=== PATIENT | female | born 1950 | race Caucasian/White ===

== ENCOUNTER → 2016-08-13 | Outpatient (CLI) | payer BC ==
[~2016-08-13] MED LIST: HYDR25TA4 PO; METO50TA16 PO; SIMV20TA2 PO
--- NOTE | 2016-08-13 12:39 | MAMMOGRAPHY REPORT ---
BILATERAL DIGITAL SCREENING MAMMOGRAM WITH CAD: 08/13/2016 CLINICAL HISTORY: Routine screening. Patient has no complaints. TECHNIQUE: Bilateral CC and MLO views were obtained. Current study was also evaluated with a Comput er Aided Detection (CAD) system. COMPARISON: Comparison is made to exams dated: 08/10/2015 mammogram, 08/05/2014 mammogram, 08/03/2013 m ammogram, 07/30/2012 mammogram, 07/26/2011 mammogram, and 07/25/2010 mammogram - [facility] [address] BREAST COMPOSITION: There are scattered areas of fibroglandular density in both breasts. FINDINGS: Asymmetry in the upper outer Quadrant of the left breast appears similar on all available prior mammograms dating back to at least 2007, therefore likely benign. No new suspicious mass, arc hitectural distortion or cluster of microcalcifications is seen. IMPRESSION: ACR BI-RADS CATEGORY 1: NEGATIVE There is no mammographic evidence of malignancy. A 1 year screening mammogram is recommended. The p atient will receive written notification of the results. Approximately 10% of breast cancers are not detected with mammography. A negative mammographic repor t should not delay biopsy if a clinically suggestive mass is present. Sarah Franks M.D. ay/:08/13/2016 08:19:34 [place] Worker: Armida Astudillo, [facility] letter sent: Normal 1/2 BI-RADS Code: ACR BI-RADS Category 1: Negative
== END | disposition home or self-care (01) ==
LOC: C.MAMM 07:28
PROVIDERS: ATTEND Obstetrics & Gynecology
DX: Z12.31 Encounter for screening mammogram for malignant neoplasm of breast (principal)

== ENCOUNTER → 2016-11-13 | Outpatient (CLI) | payer BC ==
[2016-11-13 11:36] LABS: ALT/SGPT 32 U/L (12-78); AST/SGOT 27 U/L (15-37); BLOOD UREA NITROGEN 11 mg/dl (7-18); BUN/CREATININE RATIO 13.3 (10-20); CALCIUM 9.5 mg/dl (8.5-10.1); CARBON DIOXIDE 33 mmol/L (21-32); CHLORIDE 99 mmol/L (98-107); CHOLESTEROL 135 mg/dl (0-200); CREATININE 0.85 mg/dl (0.60-1.20); GLUCOSE 102 mg/dl (70-99); SODIUM 136 mmol/L (136-145)
[2016-11-13 11:38] LABS: CHOLESTEROL/HDL RATIO 2.2; HDL CHOLESTEROL 61 mg/dl; LDL CHOLESTEROL CALCULATED 58 mg/dl; TRIGLYCERIDES 81 mg/dl (0-150); VERY LOW DENSITY LIPOPROT CALC 16 mg/dl
== END | disposition home or self-care (01) ==
LOC: C.LABBC 07:48
DX: I10 Essential (primary) hypertension (principal); E78.5 Hyperlipidemia, unspecified

== ENCOUNTER → 2017-05-13 | Outpatient (CLI) | payer BC ==
[2017-05-13 11:21] LABS: ALT/SGPT 30 U/L (12-78); BLOOD UREA NITROGEN 15 mg/dl (7-18); BUN/CREATININE RATIO 17.7 (10-20); CALCIUM 9.1 mg/dl (8.5-10.1); CARBON DIOXIDE 29 mmol/L (21-32); CHLORIDE 102 mmol/L (98-107); CREATININE 0.83 mg/dl (0.60-1.20); GLUCOSE 95 mg/dl (70-99); SODIUM 136 mmol/L (136-145)
[2017-05-13 11:24] LABS: AST/SGOT 23 U/L (15-37)
== END | disposition home or self-care (01) ==
LOC: C.LABBC 07:37
DX: I10 Essential (primary) hypertension (principal); E78.5 Hyperlipidemia, unspecified

== ENCOUNTER → 2017-05-20 | Outpatient (CLI) | payer BC ==
--- NOTE | 2017-05-20 11:32 | DIAGNOSTIC IMAGING REPORT ---
L FOOT MIN 3 VIEWS ROUTINE CLINICAL HISTORY: Left foot pain COMPARISON: None. DISCUSSION: There are osteoarthritic changes with a hallux valgus deformity and first metatarsal head bunion. There are no acute fractures or dislocations. There is an os navicularis. IMPRESSION: No acute fractures. Moderate degenerative changes at the level of the first metatarsal phalangeal joint. Electronically signed by: Reilly Sandoval M.D. 05/20/2017 11:31 AM Dictated Date/Time: 05/20/2017 11:30 AM
--- NOTE | 2017-05-20 11:36 | DIAGNOSTIC IMAGING REPORT ---
LEFT HAND 3 VIEWS CLINICAL HISTORY: Left hand pain. FINDINGS: 3 views of left hand are obtained. No prior studies are available for comparison at the time of dictation. The skeletal structures appear osteopenic. No fracture is seen. Mild to moderate osteoarthritic change is present at the first carpometacarpal joint. Mild arthritic changes also seen at the first metacarpophalangeal joint. There is arthritic change involving the interphalangeal joints, distal greater than proximal. 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 Soft tissue edema is present in these fingers. IMPRESSION: 1. There is no radiographic evidence of left hand fracture. 2. Osteopenia and arthritic change as above. 3. 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 Soft tissue swelling is noted in these fingers. Electronically signed by: Quentin Galindo M.D. 05/20/2017 11:34 AM Dictated Date/Time: 05/20/2017 11:32 AM
--- NOTE | 2017-05-20 11:37 | DIAGNOSTIC IMAGING REPORT ---
L ANKLE MIN 3 VIEWS ROUTINE CLINICAL HISTORY: Unremarkable left ankle trauma. Arthritis. COMPARISON: None FINDINGS: Alignment of the left ankle is anatomic. There is no acute fracture. Talar dome is intact. There is mild osteophytosis of the tibiotalar articulation. [place]ss[place] along the proximal clavicular better depicted on the left foot radiographs. IMPRESSION: 1. No acute fracture or dislocation of the left ankle. 2. Mild tibiotalar joint osteoarthritis. Electronically signed by: Lukas Echevarria M.D. 05/20/2017 11:36 AM Dictated Date/Time: 05/20/2017 11:32 AM
[2017-05-20 14:09] LABS: LYME DISEASE AB IGG NEG (NEG); LYME DISEASE AB IGM NEG (NEG)
== END | disposition home or self-care (01) ==
LOC: C.RADBC 10:30
DX: M19.042 Primary osteoarthritis, left hand (principal); M19.041 Primary osteoarthritis, right hand; S99.912A Unspecified injury of left ankle, initial encounter; X58.XXXA Exposure to other specified factors, initial encounter

== ENCOUNTER → 2017-08-19 | Outpatient (CLI) | payer BC ==
--- NOTE | 2017-08-19 14:30 | MAMMOGRAPHY REPORT ---
BILATERAL DIGITAL SCREENING MAMMOGRAM TOMOSYNTHESIS WITH CAD: 08/19/2017 CLINICAL HISTORY: Routine screening. Patient has no complaints. TECHNIQUE: Breast tomosynthesis in addition to standard 2D mammography was performed. Current study was also evaluated with a Computer Aided Detection (CAD) system. COMPARISON: Comparison is made to exams dated: 08/13/2016 mammogram, 08/10/2015 mammogram, 08/05/2014 carolyne mogram, 08/03/2013 mammogram, 07/30/2012 mammogram, and 07/26/2011 mammogram - [facility]. BREAST COMPOSITION: There are scattered areas of fibroglandular density in both breasts. FINDINGS: The parenchymal pattern is unchanged. No developing mass, architectural distortion or clus ter of suspicious microcalcifications is seen in either breast. IMPRESSION: ACR BI-RADS CATEGORY 2: BENIGN There is no mammographic evidence of malignancy. A 1 year screening mammogram is recommended. The pa tient will receive written notification of the results. Approximately 10% of breast cancers are not detected with mammography. A negative mammographic report should not delay biopsy if a clinically suggestive mass is present. Sarah Franks M.D. ay/:08/19/2017 13:22:41 Grit Blaster: Armida HAMM(Ambrocio)(M), [facility] letter sent: Normal 1/2 BI-RADS Code: ACR BI-RADS Category 2: Benign
== END | disposition home or self-care (01) ==
LOC: C.MAMM 07:31
DX: Z12.31 Encounter for screening mammogram for malignant neoplasm of breast (principal)

== ENCOUNTER → 2017-10-06 | Outpatient (CLI) | payer BC | END | disposition home or self-care (01) | LOC: C.MAMM 08:22 | DX: M85.89 Other specified disorders of bone density and structure, multiple sites (principal) ==

== ENCOUNTER → 2017-11-18 | Outpatient (CLI) | payer BC ==
[2017-11-18 11:06] LABS: BASO % 1.1 %; BASO ABS # 0.06 K/uL (0-0.2); EOS % 5.1 %; EOS ABS # 0.28 K/uL (0-0.5); HEMATOCRIT 45.5 % (37-47); HEMOGLOBIN 16.1 g/dL (12.0-16.0); IG# 0.01 K/uL (0.00-0.02); LYMPH % 33.3 %; LYMPH ABS # 1.81 K/uL (1.2-3.4); MEAN CELL VOLUME 89.7 fL (80-100); MEAN CORPUSCULAR HEMOGLOBIN 31.8 pg (25-34); MEAN CORPUSCULAR HGB CONC 35.4 g/dl (32-36); MEAN PLATELET VOLUME 9.2 fL (7.4-10.4); MONO % 8.1 %; MONO ABS # 0.44 K/uL (0.11-0.59); NEUT % 52.2 %; NEUT ABS # 2.84 K/uL (1.4-6.5); PLATELET COUNT 327 K/uL (130-400); RED CELL DISTRIBUTION WIDTH CV 12.2 % (11.5-14.5); RED CELL DISTRIBUTION WIDTH SD 39.8 fL (36.4-46.3); WHITE BLOOD COUNT 5.44 K/uL (4.8-10.8)
[2017-11-18 11:58] LABS: ALT/SGPT 31 U/L (12-78); AST/SGOT 21 U/L (15-37); BLOOD UREA NITROGEN 12 mg/dl (7-18); CALCIUM 9.3 mg/dl (8.5-10.1); CARBON DIOXIDE 29 mmol/L (21-32); CHOLESTEROL 147 mg/dl (0-200); CREATININE 0.88 mg/dl (0.60-1.20); GLUCOSE 89 mg/dl (70-99); POTASSIUM 3.7 mmol/L (3.5-5.1); SODIUM 134 mmol/L (136-145)
[2017-11-18 12:01] LABS: LDL CHOLESTEROL CALCULATED 68 mg/dl
== END | disposition home or self-care (01) ==
LOC: C.LABBC 07:42
DX: I10 Essential (primary) hypertension (principal); E78.5 Hyperlipidemia, unspecified; M85.80 Other specified disorders of bone density and structure, unspecified site; D72.819 Decreased white blood cell count, unspecified